=== PATIENT | female | born 1990 | race Caucasian/White ===

== ENCOUNTER 2019-01-09 17:05 | Emergency (ER) | payer OTHER ==
[~2019-01-09] VITALS: Ht 157.5 cm; Wt 56.7 kg
[2019-01-09] MEDS ORDERED: ACETAMINOPHEN-1 EAC1 PO (17:43)
[2019-01-09] MEDS ORDERED: KEFLEX500 M1 PO (17:43)
[2019-01-09] MEDS ORDERED: PERIDEX15 ML SWISH&SPIT (17:43)
[2019-01-09 17:50] VITALS: BP 130/90
== END 2019-01-09 17:52 | disposition home or self-care (01) ==
LOC: M.ERS 17:05
DX: K02.9 Dental caries, unspecified (principal); K03.81 Cracked tooth; K05.10 Chronic gingivitis, plaque induced; Z88.8 Allergy status to other drugs, medicaments and biological substances

== ENCOUNTER 2019-08-12 09:27 | Emergency (ER) | payer OTHER ==
[~2019-08-12] VITALS: Ht 157.5 cm; Wt 59.0 kg
[~2019-08-12 09:27] MED LIST: ACETAMINOPHEN-1 EAC1 PO; KEFLEX500 M1 PO; PERIDEX15 ML SWISH&SPIT
[2019-08-12] MEDS ORDERED: PENICILLIN VK500 MG PO (09:44)
[2019-08-12] MEDS ORDERED: HYDROCODON-ACE1 EAC7 PO (09:44)
[2019-08-12 09:56] VITALS: BP 139/93
== END 2019-08-12 09:56 | disposition home or self-care (01) ==
LOC: M.ERS 09:27
DX: K02.9 Dental caries, unspecified (principal); Z88.8 Allergy status to other drugs, medicaments and biological substances

== ENCOUNTER 2019-08-14 18:19 | Emergency (ER) | payer OTHER ==
[~2019-08-14] VITALS: Ht 157.5 cm; Wt 59.0 kg
[~2019-08-14 18:19] MED LIST changes: +HYDROCODON-ACE1 EAC7 PO; +PENICILLIN VK500 MG PO
[2019-08-14 19:52] VITALS: BP 156/98
[2019-08-15] MEDS ORDERED: NORCO 5-325 TA1 EAC1 PO ×2 (13:30→13:31)
[2019-08-15] MEDS ORDERED: NAPROSYN500 MG PO ×2 (13:30→13:31)
[2019-08-15] MEDS ORDERED: CLEOCIN HCL150 MG PO ×2 (13:30→13:31)
== END 2019-08-14 19:53 | disposition left against medical advice (07) ==
LOC: M.ERS 18:19
DX: Z53.21 Procedure and treatment not carried out due to patient leaving prior to being seen by health care provider (principal)

== ENCOUNTER 2019-08-15 11:01 | Emergency (ER) | payer OTHER ==
[~2019-08-15] VITALS: Ht 157.5 cm; Wt 59.0 kg
[2019-08-15 11:41] LABS: ABSOLUTE BASOPHILS 0.1 thou/uL (0.0-0.2); ABSOLUTE LYMPHOCYTES 1.8 thou/uL (0.8-5.3); ABSOLUTE MONOCYTES 0.3 thou/uL (0.0-1.2); ABSOLUTE NEUTROPHILS 7.4 thou/uL (1.6-8.1); BASOPHILS 0.7 %; EOSINOPHILS 0.5 %; HEMATOCRIT 41.4 % (37.0-47.0); HEMOGLOBIN 14.2 gm/dL (12.0-15.0); LYMPHOCYTES 19.3 %; MCH 31.4 pg (26.0-34.0); MCHC 34.3 g/dL (28.0-37.0); MCV 91.4 fL (80.0-100.0); MONOCYTES 2.9 %; MPV 8.5 fl. (7.2-11.1); NUCLEATED RBCS 0 /100WBC; PLATELET COUNT* 346 thou/uL (150-400); POLYS 76.6 %; RBC 4.53 mil/uL (4.20-5.00); RDW-CV 13.2 % (10.5-14.5); WBC 9.6 thou/uL (4.0-11.0)
[2019-08-15 11:57] LABS: CALCIUM 9.2 mg/dL (8.5-10.1); CREATININE 0.8 mg/dL (0.6-1.3); POTASSIUM 3.9 mmol/L (3.5-5.1)
[2019-08-15 12:11] LABS: ALBUMIN 3.7 g/dL (3.4-5.0); TOTAL BILIRUBIN 0.3 mg/dL (<0.1-1.0); TOTAL PROTEIN 8.2 g/dL (6.4-8.2)
[2019-08-15] MEDS ORDERED: NORCO 5-325 TA1 EAC1 PO ×2 (13:30→13:31)
[2019-08-15] MEDS ORDERED: CLEOCIN HCL150 MG PO ×2 (13:30→13:31)
[2019-08-15] MEDS ORDERED: NAPROSYN500 MG PO ×2 (13:30→13:31)
[2019-08-15 13:55] VITALS: BP 129/75
== END 2019-08-15 13:58 | disposition home or self-care (01) ==
LOC: M.ERS 11:01
PROVIDERS: Nurse Practitioner Family
DX: K04.7 Periapical abscess without sinus (principal); Z88.8 Allergy status to other drugs, medicaments and biological substances

== ENCOUNTER 2020-03-07 16:10 | Emergency (ER) | payer OTHER ==
[~2020-03-07] VITALS: Ht 157.5 cm; Wt 59.0 kg
[~2020-03-07 16:10] MED LIST changes: +CLEOCIN HCL150 MG PO; +NAPROSYN500 MG PO; +NORCO 5-325 TA1 EAC1 PO
[2020-03-07] MEDS ORDERED: TOPROL XL25 MG PO (16:39)
[2020-03-07] MEDS ORDERED: NORCO 5-325 TA1 EAC2 PO (17:14)
[2020-03-07] MEDS ORDERED: BACTRIM DS TAB1 EACH PO (17:14)
[2020-03-07] MEDS ORDERED: KEFLEX500 M1 PO (17:14)
[2020-03-07 17:21] VITALS: BP 133/81
== END 2020-03-07 17:22 | disposition home or self-care (01) ==
LOC: M.ERS 16:10
DX: S90.511A Abrasion, right ankle, initial encounter (principal); L03.115 Cellulitis of right lower limb; F17.210 Nicotine dependence, cigarettes, uncomplicated; Z88.8 Allergy status to other drugs, medicaments and biological substances; X58.XXXA Exposure to other specified factors, initial encounter; Y93.89 Activity, other specified; Y92.89 Other specified places as the place of occurrence of the external cause; Y99.8 Other external cause status